=== PATIENT | female | born 1975 | race Hispanic/Latino ===

== ENCOUNTER 2018-02-02 11:32 | Emergency (ER) | payer SELFPAY ==
[2018-02-02] MEDS ORDERED: KETOROLAC TROMETHAMINE 60 MG/2 ML VIAL ONE (12:13)
== END 2018-02-02 13:15 | disposition home or self-care (01) ==
LOC: EDH 11:32
DX: M25.512 Pain in left shoulder (principal)
CPT/HCPCS: 93005; 96372; 99283; J1885

== ENCOUNTER 2018-03-03 19:57 | Emergency (ER) | payer SELFPAY | END 2018-03-03 20:22 | disposition home or self-care (01) | LOC: EDH 19:57 | DX: N64.4 Mastodynia (principal); Z90.49 Acquired absence of other specified parts of digestive tract; Z98.890 Other specified postprocedural states | CPT/HCPCS: 99281 ==

== ENCOUNTER 2018-09-26 23:21 | Emergency (ER) | payer OTHER ==
[2018-09-26 23:46] LABS: APPEARANCE,URINE Clear (CLEAR); BILIRUBIN,URINE Negative (NEGATIVE); COLOR,URINE Yellow (YELLOW); GLUCOSE, URINE (UA) Negative (NEGATIVE); KETONES,URINE Negative (NEGATIVE); LEUKOCYTE ESTERASE ,URINE Small (NEGATIVE); NITRATE,URINE Negative (NEGATIVE); OCCULT BLOOD,URINE Large (NEGATIVE); PROTEIN,URINE Negative (NEGATIVE); UROBILINOGEN,URINE 0.2 mg/dL (0.2-1.0)
[2018-09-26 23:47] LABS: HCG,QUAL RESULT NEGATIVE (NEGATIVE)
[2018-09-26] MEDS ORDERED: KETOROLAC TROMETHAMINE 30MG/ML ONE (23:59)
[2018-09-27 00:14] LABS: BACTERIA,URINE None Seen /HPF (None Seen); SQUAMOUS EPITHELIAL CELL,UR Rare /HPF (0-2); WBC,URINE 0-1 /HPF (0-1)
== END 2018-09-27 00:25 | disposition home or self-care (01) ==
LOC: EDH 23:21
DX: S29.012A Strain of muscle and tendon of back wall of thorax, initial encounter (principal); Z90.49 Acquired absence of other specified parts of digestive tract; Z98.890 Other specified postprocedural states; X58.XXXA Exposure to other specified factors, initial encounter; Y93.89 Activity, other specified; Y92.89 Other specified places as the place of occurrence of the external cause; Y99.8 Other external cause status
CPT/HCPCS: 81001; 81025; 96372; 99284; J1885

== ENCOUNTER → 2019-03-28 | Outpatient (CLI) | payer OTHER | END | disposition home or self-care (01) | LOC: RAH 09:26 | DX: Z12.31 Encounter for screening mammogram for malignant neoplasm of breast (principal) | CPT/HCPCS: 77067 ==

== ENCOUNTER 2023-03-26 05:07 | Emergency (ER) | payer BC, OTHER ==
[~2023-03-26] VITALS: Ht 160 cm; Wt 87.5 kg
[~2023-03-26 05:07] MED LIST: CEPH500B PO; DOCU-116 PO; FERR324T4 PO
[2023-03-26 05:34] LABS: BASOPHILS % (AUTO) 0.7 % (0.0-5.0); EOSINOPHILS % (AUTO) 2.4 % (0.0-8.0); HEMATOCRIT 31.8 % (36-48); LYMPHOCYTES % (AUTO) 21.2 % (21.0-51.0); MEAN CORPUSCULAR HEMOGLOBIN 20.2 pg (27.0-33.0); MEAN CORPUSCULAR HGB CONC 28.3 g/dL (32.0-36.0); MEAN CORPUSCULAR VOLUME 71.3 fL (79-99); MONOCYTES % (AUTO) 7.1 % (3.0-13.0); NEUTROPHILS % (AUTO) 68.1 % (40.0-77.0); PLATELET COUNT (AUTO) 402 K/uL (130-400); RED BLOOD CELL COUNT(AUTO) 4.46 MIL/uL (4.00-5.50); RED CELL DISTRIBUTION WIDTH 18.1 % (11.0-15.5); WHITE BLOOD COUNT (AUTO) 8.8 K/uL (4.8-10.8)
[2023-03-26 05:50] LABS: ALBUMIN 3.5 g/dL (3.5-5.0); CREATININE 0.6 mg/dL (0.5-1.5); PLATELET MORPHOLOGY LARGE PLTS PRESENT; POTASSIUM 3.9 mmol/L (3.5-5.1); TOTAL PROTEIN, SERUM 7.5 g/dL (6.0-8.3)
[2023-03-26 05:55] LABS: APPEARANCE,URINE CLEAR (CLEAR); BILIRUBIN,URINE NEGATIVE (NEGATIVE); COLOR,URINE LIGHT-YELLOW (YELLOW); GLUCOSE, URINE (UA) NEGATIVE (NEGATIVE); KETONES,URINE NEGATIVE (NEGATIVE); LEUKOCYTE ESTERASE ,URINE 75 Leu/uL (NEGATIVE); NITRATE,URINE NEGATIVE (NEGATIVE); OCCULT BLOOD,URINE NEGATIVE (NEGATIVE); PROTEIN,URINE NEGATIVE (NEGATIVE); UROBILINOGEN,URINE 0.2 mg/dL (0.2-1.0)
[2023-03-26 05:59] LABS: MUCUS,URINE RARE LPF (None Seen); RBC,URINE 0-1 /HPF (0-1); SQUAMOUS EPITHELIAL CELL,UR MOD /HPF (0-2)
[2023-03-26 10:10] VITALS: BP 130/68
[2023-03-26] MEDS ORDERED: CEFTRIAXONE 1G VIAL ONE (10:27)
[2023-03-26] MEDS ORDERED: CEFTRIAXONE 1G VIAL IVPB ONE (10:30)
[2023-03-26] MEDS ORDERED: CEPH500B PO (10:31)
== END 2023-03-26 11:06 | disposition home or self-care (01) ==
LOC: EDH 05:07
DX: N39.0 Urinary tract infection, site not specified (principal); Z90.49 Acquired absence of other specified parts of digestive tract
CPT/HCPCS: 99284; 74176; 96374; 84484; 80053; 83690; 85025; 87088; 81001; 36415; J0696

== ENCOUNTER 2023-10-28 11:56 | Emergency (ER) | payer BC ==
[~2023-10-28] VITALS: Ht 160 cm; Wt 89.0 kg
[2023-10-28 13:36] VITALS: BP 147/88; PULSE 82; RESP 18; O2SAT 98
[2023-10-28] MEDS ORDERED: LIDOCAINE HCL 2% VISCOUS 15 ML UDCUP PO ONE (14:00)
[2023-10-28] MEDS ORDERED: MAG/ALUM/SIMETH 30 ML UDCUP PO ONE (14:00)
[2023-10-28 14:23] LABS: BASOPHILS # (AUTO) 0.07 K/uL (0.00-0.20); BASOPHILS % (AUTO) 0.7 % (0.0-5.0); EOSINOPHILS # (AUTO) 0.19 K/uL (0.00-0.70); EOSINOPHILS % (AUTO) 1.9 % (0.0-8.0); HEMATOCRIT 33.5 % (36-48); IMMATURE GRANULOCYTE ABSOLUTE 0.04 K/uL (0-1); LYMPHOCYTES # (AUTO) 2.2 K/uL (1.0-4.8); LYMPHOCYTES % (AUTO) 21.4 % (21.0-51.0); MEAN CORPUSCULAR HEMOGLOBIN 21.4 pg (27.0-33.0); MEAN CORPUSCULAR HGB CONC 29.3 g/dL (32.0-36.0); MEAN CORPUSCULAR VOLUME 73.1 fL (79-99); MONOCYTES # (AUTO) 0.6 K/uL (0.1-1.0); MONOCYTES % (AUTO) 5.7 % (3.0-13.0); NEUTROPHILS # (AUTO) 7.1 K/uL (1.8-7.7); NEUTROPHILS % (AUTO) 69.9 % (40.0-77.0); PLATELET COUNT (AUTO) 485 K/uL (130-400); RED BLOOD CELL COUNT(AUTO) 4.58 MIL/uL (4.00-5.50); RED CELL DISTRIBUTION WIDTH 17.5 % (11.0-15.5); WHITE BLOOD COUNT (AUTO) 10.1 K/uL (4.8-10.8)
[2023-10-28 14:31] LABS: APPEARANCE,URINE CLEAR (CLEAR); BILIRUBIN,URINE NEGATIVE (NEGATIVE); COLOR,URINE COLORLESS (YELLOW); GLUCOSE, URINE (UA) NEGATIVE (NEGATIVE); KETONES,URINE NEGATIVE (NEGATIVE); LEUKOCYTE ESTERASE ,URINE NEGATIVE Leu/uL (NEGATIVE); NITRATE,URINE NEGATIVE (NEGATIVE); OCCULT BLOOD,URINE LARGE (NEGATIVE); PROTEIN,URINE 20 mg/dL (NEGATIVE); UROBILINOGEN,URINE 0.2 mg/dL (0.2-1.0)
[2023-10-28 14:35] LABS: ADD UA MICROSCOPIC YES
[2023-10-28 14:43] LABS: CREATININE 0.6 mg/dL (0.5-1.5); POTASSIUM 3.5 mmol/L (3.5-5.1)
[2023-10-28 14:45] LABS: ALBUMIN 3.9 g/dL (3.5-5.0); BILIRUBIN,TOTAL 0.4 mg/dL (0.2-1.0); TOTAL PROTEIN, SERUM 9.1 g/dL (6.0-8.3)
[2023-10-28 14:48] LABS: MUCUS,URINE RARE LPF (None Seen); OTHER CASTS, URINE 1 /LPF (None Seen); RBC,URINE 51-100 /HPF (0-1); SQUAMOUS EPITHELIAL CELL,UR FEW /HPF (0-2); UNCLASSIFIED CRYSTAL 3 /HPF (None Seen)
[2023-10-28] MEDS ORDERED: FAMO20TA8 PO (16:03)
== END 2023-10-28 16:51 | disposition home or self-care (01) ==
LOC: EDH 11:56
DX: K29.70 Gastritis, unspecified, without bleeding (principal); Z90.49 Acquired absence of other specified parts of digestive tract
CPT/HCPCS: 36415; 71045; 80053; 81001; 83690; 84484; 85025; 93005

== ENCOUNTER 2024-03-01 03:57 | Emergency (ER) | payer BC ==
[~2024-03-01] VITALS: Ht 160 cm; Wt 86.6 kg
[~2024-03-01 03:57] MED LIST changes: +FAMO20TA8 PO
[2024-03-01 04:27] LABS: RAPID GROUP A STREP negative (NEGATIVE)
[2024-03-01 04:34] LABS: SARS-CoV-2, RNA, NAAT NEGATIVE SARS CoV-2 (NEGATIVE)
[2024-03-01] MEDS: SOLU-MEDROL 125MG VIAL IVP ONE (04:35)
[2024-03-01 04:37] LABS: INFLUENZA TYPE A Negative For Type A (NEGATIVE); INFLUENZA TYPE B Negative For Type B (NEGATIVE)
[2024-03-01] MEDS: IPRATROPIUM/ALBUTEROL SULFATE 3 ML SOLUTION IH ONE (04:38)
[2024-03-01 04:40] VITALS: PULSE 67; RESP 18
[2024-03-01] MEDS ORDERED: OMEP40CA21 PO (05:49)
[2024-03-01] MEDS ORDERED: ALBU90AE2 IH (05:49)
[2024-03-01] MEDS ORDERED: AZIT500T2 PO (05:49)
[2024-03-01] MEDS ORDERED: PRED20TA3 PO (05:49)
[2024-03-01 05:57] VITALS: BP 125/80; PULSE 79; RESP 18; O2SAT 99
== END 2024-03-01 05:58 | disposition home or self-care (01) ==
LOC: EDH 03:57
DX: J20.9 Acute bronchitis, unspecified (principal); Z20.822 Contact with and (suspected) exposure to COVID-19; Z79.899 Other long term (current) drug therapy; Z90.49 Acquired absence of other specified parts of digestive tract; Z98.890 Other specified postprocedural states
CPT/HCPCS: 99284; 96374; 71045; 87635; 87880; 87804 ×2; 94640; J2919

== ENCOUNTER 2025-10-05 07:02 | Emergency (ER) | payer BC, OTHER ==
[~2025-10-05] VITALS: Ht 160 cm; Wt 86.6 kg
[~2025-10-05 07:02] MED LIST changes: +ALBU90AE3 IH; +AZIT500T2 PO; -CEPH500B PO; -DOCU-116 PO; +OMEP40CA21 PO; +PRED20TA3 PO
[2025-10-05 07:44] LABS: RAPID GROUP A STREP negative (NEGATIVE)
[2025-10-05 07:51] LABS: COVID19 (SARS ANTIGEN RAPID) PRESUMPTIVE NEGATIVE (NEGATIVE)
[2025-10-05 07:54] LABS: INFLUENZA TYPE A Negative For Type A (NEGATIVE); INFLUENZA TYPE B Negative For Type B (NEGATIVE)
[2025-10-05] MEDS ORDERED: AZIT250T9 PO (08:19)
[2025-10-05] MEDS ORDERED: PRED20TA3 PO (08:20)
--- NOTE | 2025-10-05 08:20 | ERN ---
ED Note History of Present Illness Stated Complaint: COUGH Chief Complaint: Cough Time Seen by MD: 07:21 Dictation: 50-year-old female presenting to the emergency department with cough cold congestion over the past few weeks, patient has no past medical history does not take any medications. Patient reports mild chills no shortness of breath or chest pain Allergies: Coded Allergies: No Known Drug Allergies (Verified Allergy, Unknown, 05/09/15) Home Meds Active Scripts Azithromycin (Zithromax Tri-Gerry) 500 Mg Tablet, 500 MG PO DAILY, #3 TAB Prov:PETAR NATHAN MD 03/01/24 Albuterol Sulfate (Proair Digihaler) 90 Mcg Aer.pw.bas, 2 PUFF IH QID, #1 UNIT Prov:PETAR NATHAN MD 03/01/24 Omeprazole (Omeprazole) 40 Mg Capsule., 40 MG PO DAILY, #30 CAP Prov:PETAR NATHAN MD 03/01/24 Prednisone (Prednisone) 20 Mg Tablet, 1 TAB PO AD for 6 Days, #14 TAB 0 Refills TAKE 3 TAB BY MOUTH daily X3 DAYS, THEN TAKE 2 TAB BY MOUTH daily X2 DAYS, THEN TAKE 1 TAB BY MOUTH ONCE A DAY X1 DAY. Prov:PETAR NATHAN MD 03/01/24 Famotidine (Famotidine) 20 Mg Tablet, 20 MG PO BID, #14 TAB Prov:LUIS CARLOS [facility] 10/28/23 Ferrous Sulfate (Ferrous Sulfate) 324 Mg Tablet., 324 MG PO DAILY for 20 Days, #30 TAB Prov:JOHN RITTER MD 08/28/22 Past Medical History Past Medical History: No Pertinent History Surgical History: Cholecystectomy, Family History: Negative Social History: Lives with family LMP: Sep 20, 2025 Review of System Dictation Constitutional: Negative for fever, positive for chills Eyes: Negative for injury, pain,redness, and discharge ENT: Per H PI Cardiovascular: Negative for chest pain, palpitations, and edema Respiratory: Per HPI Abdomen/GI: Negative for abdominal pain, nausea, vomiting, diarrhea, and co nstipation Back: Negative for injury and pain : Negative for injury, bleeding and discharge MS/Extremity: Negative for injury and deformity Skin: Negative for rash, and discoloration Neuro: Negative for headache, weakness, numbness, tingling, and seizure Psych: Negative for suicide ideation, homicidal ideation, and hallucinations Initial Vital Sign VS Vital Signs Date Time Temp Pulse Resp B/P (MAP) Pulse Ox O2 Delivery O2 Flow Rate FiO2 10/05/25 07:03 98.1 89 16 133/62 98 Room Air 0 10/05/25 07:14 21 Physical Exam Dictation General: awake, alert, NAD Head/Face: Normocephalic, atraumatic Eyes: PERRL, EOMI, vision at baseline ENT: oral cavity clear, TMs clear, no signs of infection Neck: Trachea midline, supple, no nuchal rigidity Cardiovascular: RRR, normal S1/S2, No MRGs, no JVD Respiratory: CTAB, no respiratory distress, No rales or wheezes Abdomen: Soft, non-tender, non-distended, normal bowel sounds, no guarding or re bound. Skin: Warm, dry, normal turgor, no rash MS/Extremity: Pulses equal, no cyanosis, neurovascular intact, FROM Neuro: COAx4, GCS 15, strength 5/5, CN 2-12 intact, normal cerebellar exam, normal gait, Psych: Normal behavior, mood, and affect normal Results (Laboratory/Radiology) Laboratory/Radiology Laboratory Tests Test 10/05/25 07:17 Influenza Type A Antigen Negative For Type A Influenza Type B Antigen Negative For Type B SARS-CoV-2 Antigen (Rapid) PRESUMPTIVE NEGATIVE Group A Streptococcus Rapid negative (NEGATIVE) Labs Reviewed?: Yes X-RAY Comment: X-ray of chest no acute process no infiltrates ED Course ED Course Orders Procedure Category Date Status Time Influenza Type A & B, LAB 10/05/25 Complete Rapid 07:06 Rapid (Group A Strep) LAB 10/05/25 Complete 07:06 Covid19 (Sars Antigen LAB 10/05/25 Complete Rapid) 07:06 Chest 1vw RAD 10/05/25 Taken 07:21 Vital Signs Date Time Temp Pulse Resp B/P (MAP) Pulse Ox O2 Delivery O2 Flow Rate FiO2 10/05/25 07:14 98.1 89 16 133/62 98 Room Air* 0 21 10/05/25 07:03 98.1 89 16 133/62 98 Room Air 0 Medical Decision Making MDM MDM: Differential diagnosis: Rationale: Tests considered and ordered secondary to shared decision making include: Previous outside records reviewed: Old ER visits. Risk of complication and/or morbidity or mortality of patient management: None Medications-Per medication reconciliation Need for hospitalization: Patient does not meet criteria for hospitalization. Need for emergency major/minor surgery: No There are no social concerns with this patient. Prescription drug management Prescriptions will include symptomatic care Patient's prior external medical records from other ER visits were reviewed by me as indicated. Prior testing and results from previous visits were reviewed. Prior tests were taken into account with medical decision making and resource utilization, independent historian/historians were used to obtain complete medical history. I independently interpreted the test that were performed, results were reviewed by me and considered findings on radiology if ordered. Medical management and examination interpretation discussions were had by me with other qualified healthcare professionals as indicated for the patient's care. 50-year-old female with cough cold congestion negative swabs and chest x-ray, acute URI prescriptions given stable for discharge. DX & DISP Disposition: Discharge Departure Impression: Primary Impression: Acute bronchitis Condition: Stable Scripts Prednisone (Prednisone) 20 Mg Tablet 1 TAB PO DAILY for 5 Days, #5 TAB 0 Refills Prov: TERESA MCDUFFIE MD 10/05/25 Azithromycin (Azithromycin) 250 Mg Tablet 250 MG PO AD for cough for 5 Days, #6 TAB Prov: TERESA MCDUFFIE MD 10/05/25 Referrals: SELF,REFERRAL (PCP) TERESA MCDUFFIE MD Oct 05, 2025 08:20
--- NOTE | 2025-10-05 08:24 | HMCIMG ---
EXAM: CR Chest, 1 View. CLINICAL HISTORY: cough COMPARISON: None provided. FINDINGS: LUNGS: The lungs show no infiltrate or other acute finding. PLEURAL SPACES: No pleural effusion or pneumothorax. MEDIASTINUM: The cardiomediastinal silhouette is within normal limits. BONES: No aggressively appearing osseous lesion was seen. IMPRESSION: No obvious cardiopulmonary pathology. /[place]
[2025-10-05 08:40] VITALS: BP 128/74; PULSE 80; RESP 15; TEMP 98.5; O2SAT 98
== END 2025-10-05 08:39 | disposition home or self-care (01) ==
LOC: EDH 07:02
DX: J20.9 Acute bronchitis, unspecified (principal); Z20.822 Contact with and (suspected) exposure to COVID-19; Z79.899 Other long term (current) drug therapy; Z90.49 Acquired absence of other specified parts of digestive tract; Z98.890 Other specified postprocedural states
CPT/HCPCS: 71045; 87420; 87426; 87804; 87880; 99284

== ENCOUNTER 2025-10-29 09:56 | Emergency (ER) | payer OTHER ==
[~2025-10-29] VITALS: Ht 160 cm; Wt 86.0 kg
--- NOTE | 2025-10-29 10:03 | ERN ---
ED Note History of Present Illness Stated Complaint: COUGH Chief Complaint: Cough Time Seen by MD: 09:59 Dictation: PATIENT IS A 50-YEAR-OLD FEMALE COMING IN TODAY WITH COMPLAINTS OF A POP TO HER RIGHT LATERAL INFERIOR CHEST AFTER COUGHING YESTERDAY. NO FEVER NO CHILLS. SHE HAS HAD THE COUGH IS NONPRODUCTIVE. SHE DOES NOT HAVE A PRIMARY CARE DOCTOR AND ONLY USES EMERGENCY ROOMS FOR PRIMARY CARE. Allergies: Coded Allergies: No Known Drug Allergies (Verified Allergy, Unknown, 05/09/15) Home Meds Active Scripts Prednisone (Prednisone) 20 Mg Tablet, 1 TAB PO DAILY for 5 Days, #5 TAB 0 Refills Prov:TERESA MCDUFFIE MD 10/05/25 Azithromycin (Azithromycin) 250 Mg Tablet, 250 MG PO AD for cough for 5 Days, #6 TAB Prov:TERESA MCDUFFIE MD 10/05/25 Azithromycin (Zithromax Tri-Gerry) 500 Mg Tablet, 500 MG PO DAILY, #3 TAB Prov:PETAR NATHAN MD 03/01/24 Albuterol Sulfate (Proair Digihaler) 90 Mcg Aer.pw.bas, 2 PUFF IH QID, #1 UNIT Prov:PETAR NATHAN MD 03/01/24 Omeprazole (Omeprazole) 40 Mg Capsule., 40 MG PO DAILY, #30 CAP Prov:PETAR NATHAN MD 03/01/24 Prednisone (Prednisone) 20 Mg Tablet, 1 TAB PO AD for 6 Days, #14 TAB 0 Refills TAKE 3 TAB BY MOUTH daily X3 DAYS, THEN TAKE 2 TAB BY MOUTH daily X2 DAYS, THEN TAKE 1 TAB BY MOUTH ONCE A DAY X1 DAY. Prov:PETAR NATHAN MD 03/01/24 Famotidine (Famotidine) 20 Mg Tablet, 20 MG PO BID, #14 TAB Prov:LUIS CARLOS NELSON 10/28/23 Ferrous Sulfate (Ferrous Sulfate) 324 Mg Tablet., 324 MG PO DAILY for 20 Days, #30 TAB Prov:JOHN RITTER MD 08/28/22 Past Medical History Past Medical History: No Pertinent History Surgical History: Cholecystectomy, Family History: Negative Social History: Lives with family History: Not Applicable RN Note Reviewed/Agreed w/PFSH: Yes Review of System Dictation CONSTITUTIONAL: NEGATIVE EXCEPT FOR HPI HEAD/FACE: NEGATIVE EXCEPT FOR HPI EENT: NEGATIVE EXCEPT FOR HPI RESPIRATORY: NEGATIVE EXCEPT FOR HPI RIGHT INFEROLATERAL CHEST WALL TENDERNESS WITH PALPATION GASTROINTESTINAL/ABDOMINAL: NEGATIVE EXCEPT FOR HPI GENITOURINARY: NEGATIVE EXCEPT FOR HPI MUSCULOSKELETAL: NEGATIVE EXCEPT FOR HPI INTEGUMENTARY: NEGATIVE EXCEPT FOR HPI NEUROLOGICAL/PSYCH: NEGATIVE EXCEPT FOR HPI HEMATOLOGIC/LYMPHATIC: NEGATIVE EXCEPT FOR HPI ALL SYSTEMS NEGATIVE, EXCEPT NOTED ABOVE. 13 POINT REVIEW OF SYSTEMS ASSESSED AND ALL NEGATIVE EXCEPT FOR ABOVE. Initial Vital Sign VS Vital Signs Date Time Temp Pulse Resp B/P (MAP) Pulse Ox O2 Delivery O2 Flow Rate FiO2 10/29/25 09:58 98.1 86 18 146/86 100 Room Air 0 Physical Exam Dictation VITAL SIGNS REVIEWED GENERAL APPEARANCE: ALERT, ORIENTED X 3, N MILD DISTRESS, WELL DEVELOPED, NOURISHED. OBESE HEAD AND FACE: NON-TRAUMATIC. EYES: PERRL, PINK CONJUNCTIVAS, EYELID NO TRAUMA, ANTERIOR CHAMBER WITH ARCUS SENILIS. EARS: PINNAS INTACT AND NO SIGNS OF TRAUMA OR ERYTHEMA EAR CANALS CLEAR AND NO DISCHARGE TM NO ERYTHEMA NOSE: NO DISCHARGE, NO BLEEDING. OROPHARYNX: MOUTH NORMAL, TONGUE PINK, PHARYNX CLEAR,NO ERYTHEMA, TONSILS NO EXUDATES, NO ABSCESSES NOTED, MUCOUS MEMBRANE MOIST PALPATION PRODUCES PAIN NO CREPITATION NECK: SUP MILD RIGHT ANTEROLATERAL CHEST WALL TENDERNESS TENDERNESS, NO CREPITUS, NO PARADOXICAL MOVEMENT, NO RETRACTIONS LUNGS:CLEAR, WELL-VENTILATED, SYMMETRIC, NO RALES, NO WHEEZING, NO RHONCHI, NO STRIDOR, GOOD BREATH SOUNDS BILATERALLY HEART: REGULAR RATE, REGULAR RHYTHM, NO MURMUR, NO GALLOPS VASCULAR: NO PERIPHERAL EDEMA, ABDOMEN: SOFT, POSITIVE BOWEL SOUNDS, NONDISTENDED, NO GUARDING, NONTENDER, NO REBOUND, NO MASSES NO HEPATOMEGALY, NO SPLENOMEGALY, NO JUAREZ'S SIGN, NO HERNIAS. RECTAL: DEFERRED GENITAL: DEFERRED NEUROLOGICAL: NORMAL SPEECH, MOTOR FUNCTION INTACT, SENSORY FUNCTION INTACT MUSCULOSKELETAL: NECK NONTENDER, FULL RANGE OF MOTION, BACK NONTENDER, FULL RANGE OF MOTION, EXTREMITIES: NONTENDER, FULL RANGE OF MOTION SKIN: COLOR PINK, DRY, NO TURGOR, NO RASH, NO LACERATIONS, NO ABRASIONS, NO CONTUSIONS. LYMPHATIC: DEFERRED Results (Laboratory/Radiology) Laboratory/Radiology 1045/RIB SERIES RIGHT DEMONSTRATES NO PNEUMONIA NO RIB FRACTURES NO EFFUSION Labs Reviewed?: Yes ED Course ED Course Orders Procedure Category Date Status Time Ribs Uni Rt W Pa RAD 10/29/25 Taken Chest 3+ Vws 10:01 Ibuprofen 800 Mg Tab PHA 10/29/25 Complete (Motrin) 10:30 Current Medications Medications (Trade) Dose Ordered Sig/Zacarias Route PRN Reason Start Time Stop Time Status Last Admin Dose Admin Ibuprofen (moTRIN) 800 mg ONCE ONCE PO 10/29/25 10:30 10/29/25 10:31 DC Vital Signs Date Time Temp Pulse Resp B/P (MAP) Pulse Ox O2 Delivery O2 Flow Rate FiO2 10/29/25 09:58 98.1 86 18 146/86 100 Room Air 0 Medical Decision Making MDM 1045/MEDICAL DECISION-MAKING BASED ON HPI AND RIB SERIES TO RULE OUT RIB FRACTURE. RIGHT RIB SERIES NEGATIVE NO PNEUMONIA NO BRONCHITIS NO FRACTURES PATIENT DISCHARGED HOME WITH IBUPROFEN FOR CHEST WALL STRAIN TOLD SEE HER PRIMARY CARE DOCTOR THURSDAY DX & DISP Disposition: Discharge Departure Impression: Primary Impression: Muscle strain of chest wall Condition: Stable Scripts Ibuprofen (Ibuprofen 800 mg Tab) 800 Mg Tab 800 MG PO Q8H PRN for fever or pain, #30 TAB 0 Refills Prov: RENAE SANTIAGO 10/29/25 Additional Instructions: FOLLOW-UP WITH PRIMARY CARE PROVIDER IN 1 TO 2 DAYS. TAKE MEDICATIONS DIRECTED HERE IN THE EMERGENCY ROOM. OKAY TO CONTINUE HOME MEDICATIONS UNLESS OTHERWISE DISCUSSED DURING YOUR VISIT IN THE EMERGENCY ROOM TODAY. RETURN TO YOUR NEAREST EMERGENCY ROOM IF SYMPTOMS WORSEN OR IF THERE IS NO IMPROVEMENT. CALL 911 IF YOU NEED IMMEDIATE ASSISTANCE. TAKE TYLENOL OR MOTRIN [id number] NEEDED AND IF NO CONTRAINDICATIONS ARE PRESENT. INCREASE ORAL HYDRATION. A WOUND CULTURE OR URINE CULTURE WAS ORDERED HERE IN THE EMERGENCY ROOM DEPARTMENT PLEASE FOLLOW-UP WITH PRIMARY CARE PROVIDER AND ADVISE THEM TO GET REPEAT PORTS FROM OUR FACILITY. IF YOU HAD ANY DULCE MARIA WRAP/SPLINTS THAT WERE APPLIED HERE, PLEASE DO NOT REMOVE THEM UNTIL YOU SEE YOUR PRIMARY CARE OR SPECIALTY. TAKE IBUPROFEN EVERY 6-8 HOURS WITH FOOD FOR PAIN INCREASE YOUR WATER INTAKE. SEE YOUR PRIMARY CARE DOCTOR FOR FOLLOW UP Referrals: SELF,REFERRAL (PCP) Time of Disposition: 10:47 I have reviewed the case, and I agree with, Diagnosis and Plan RENAE SANTIAGO Oct 29, 2025 10:03
[2025-10-29 11:13] VITALS: BP 132/82; PULSE 80; RESP 18; TEMP 98; O2SAT 100
--- NOTE | 2025-10-29 11:15 | HMCIMG ---
EXAM: CR right Rib, 5 View. CLINICAL HISTORY: RIGHT INFEROLATERAL CHEST PAIN AFTER COUGH COMPARISON: None provided. FINDINGS: LUNGS: The visualized lungs appear essentially clear. PLEURAL SPACES: No evidence of pneumothorax. No pleural effusion. BONES: No visible acute rib fracture. IMPRESSION: 1. No acute findings. /[place]
== END 2025-10-29 11:34 | disposition home or self-care (01) ==
LOC: EDH 09:56
DX: S29.011A Strain of muscle and tendon of front wall of thorax, initial encounter (principal); Z79.52 Long term (current) use of systemic steroids; Z79.899 Other long term (current) drug therapy; Z90.49 Acquired absence of other specified parts of digestive tract; X58.XXXA Exposure to other specified factors, initial encounter; Y93.89 Activity, other specified; Y92.89 Other specified places as the place of occurrence of the external cause; Y99.8 Other external cause status
CPT/HCPCS: 71101; 99284